=== PATIENT | male | born 1985 | race Caucasian/White ===

== ENCOUNTER 2017-06-12 11:28 | Emergency (ER) | payer BC, OTHER ==
[2017-06-12 11:41] VITALS: TEMP 98.4
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
--- NOTE | 2017-06-12 13:14 | CT ---
PROCEDURE: CT MAXILLOFACIAL BONES WITHOUT CONTRAST HISTORY: pain p trauma COMPARISON: None TECHNIQUE: Contiguous axial CT images of the maxillofacial bones were obtained. Coronal and sagittal reformats were generated. Radiation dose: Total exam DLP = 826.54 mGy-cm. This CT exam was performed using one or more of the following dose reduction techniques: Automated exposure control, adjustment of the mA and/or kV according to patient size, and/or use of iterative reconstruction technique. FINDINGS: NASAL BONES: Unremarkable. ORBITS: Mild periorbital soft tissue swelling. PARANASAL SINUSES/ MASTOIDS: Mild mucosal thickening seen in both maxillary sinuses larger on the right. Mild ethmoidal mucosal thickening. MAXILLA: Unremarkable. MANDIBLE/ TEMPOROMANDIBULAR JOINTS: Unremarkable. SKULL BASE: Unremarkable. TEMPORAL BONES: Middle ears and mastoid grossly unremarkable. OTHER FINDINGS: None. IMPRESSION: No evidence of acute fracture. Mild frontal scalp and periorbital soft tissue swelling. Mild mucosal thickening in the maxillary sinuses larger on the right.
--- NOTE | 2017-06-12 14:30 | RAD ---
PROCEDURE: Right Wrist Radiographs. HISTORY: pain p fall COMPARISON: None. FINDINGS: BONES: Normal. No fracture. JOINTS: Normal. No dislocation. SOFT TISSUES: Normal. OTHER FINDINGS: None. IMPRESSION: No evidence of acute fracture or dislocation.
--- NOTE | 2017-06-12 14:31 | RAD ---
PROCEDURE: Radiographs of the Right Shoulder HISTORY: pain p fall COMPARISON: No prior. FINDINGS: BONES: Normal. No fracture. JOINTS: Normal. Glenohumeral and acromioclavicular joints preserved. No osteoarthritis. SOFT TISSUES: Normal. OTHER FINDINGS: None. IMPRESSION: No evidence of acute fracture or dislocation.
[2017-06-12] MEDS ORDERED: Bacitracin 500 Units/gm Oint Foilpak UD ONE (15:01)
[2017-06-12] MEDS ORDERED: Lidocaine 1% Inj (20ml) ONE (15:01)
[2017-06-12] MEDS ORDERED: Lidocaine 1% Inj (20ml) INFIL ONE (15:02)
[2017-06-12] MEDS ORDERED: Bacitracin 500 Units/gm Oint Foilpak UD TOP ONE (15:02)
[2017-06-12 15:07] VITALS: BP 124/75; PULSE 74; RESP 16
[2017-06-12 15:11] VITALS: O2SAT 99
== END 2017-06-12 15:32 | disposition home or self-care (01) ==
LOC: C.ER 11:28
DX: S01.111A Laceration without foreign body of right eyelid and periocular area, initial encounter (principal); S43.401A Unspecified sprain of right shoulder joint, initial encounter; S63.501A Unspecified sprain of right wrist, initial encounter; T14.8XXA Other injury of unspecified body region, initial encounter; V18.0XXA Pedal cycle driver injured in noncollision transport accident in nontraffic accident, initial encounter; Y93.55 Activity, bike riding

== ENCOUNTER 2017-06-17 11:57 | Emergency (ER) | payer BC ==
[2017-06-17 12:03] VITALS: BP 119/67; TEMP 97.4
--- NOTE | 2017-06-17 12:24 | C.PDOC ---
History Of Present Illness 06/12/17 32 y/o male presents to ED for suture removal placed on 06/12/17. Patient reports wound healing fine and denies any new symptoms, injuries or complaints at this time. Time Seen by Provider: 06/17/17 12:13 Chief Complaint (Nursing): Suture/Staple Removal History Per: Patient History/Exam Limitations: no limitations Onset/Duration Of Symptoms: Days Ago Current Symptoms Are (Timing): Better Past Medical History Reviewed: Historical Data, Nursing Documentation, Vital Signs Vital Signs: Last Vital Signs Temp 97.4 F L 06/17/17 12:01 Pulse 72 06/17/17 12:28 Resp 17 06/17/17 12:28 BP 119/67 06/17/17 12:01 Pulse Ox 98 06/17/17 12:28 - Medical History PMH: No Chronic Diseases Surgical History: No Surg Hx Family History: States: No Known Family Hx - Social History Hx Tobacco Use: No Hx Alcohol Use: Yes Hx Substance Use: No - Immunization History Hx Tetanus Toxoid Vaccination: No Hx Influenza Vaccination: No Hx Pneumococcal Vaccination: No Review Of Systems Constitutional: Negative for: Fever, Chills Eyes: Negative for: Vision Change Skin: Negative for: Rash Neurological: Negative for: Weakness, Numbness, Headache, Dizziness Physical Exam - Physical Exam Appears: Non-toxic, No Acute Distress Skin: Warm, Dry, No Rash Head: Normacephalic, No Tenderness, No Swelling, Laceration (3 stitches in pace on laceration to right lateral eyebrow. No erythema), Other (Right eyebrow lac questionable imcomplete healiung. No dehiscense ) Eye(s): bilateral: Normal Inspection, EOMI Oral Mucosa: Moist Neck: Normal ROM, Supple Chest: Symmetrical Neurological/Psych: Oriented x3, Normal Speech, Normal Cognition, Normal Motor, Normal Sensation ED Course And Treatment O2 Sat by Pulse Oximetry: 99 (RA) Pulse Ox Interpretation: Normal Progress - Data Reviewed Data Reviewed: Old records Medical Decision Making Medical Decision Making: Patient advised to come back in 2 days for suture removal Disposition Counseled Patient/Family Regarding: Diagnosis, Need For Followup - Disposition Referrals: YOUR,PMD [Other] Disposition: HOME/ ROUTINE Disposition Time: 12:20 Condition: IMPROVED Additional Instructions: RETURN 2 DAYS FOR SUTURE REMOVAL Instructions: Care For Your Stitches (ED) Forms: [facility] (Slovenian) - Clinical Impression Clinical Impression: Visit for wound care - Scribe Statement The provider has reviewed the documentation as recorded by the Monicaibrosemary Plascencia All medical record entries made by the Scribe were at my direction and personally dictated by me. I have reviewed the chart and agree that the record accurately reflects my personal performance of the history, physical exam, medical decision making, and the department course for this patient. I have also personally directed, reviewed, and agree with the discharge instructions and disposition.
[2017-06-17 12:29] VITALS: PULSE 72; RESP 17
[2017-06-17 12:33] VITALS: O2SAT 99
== END 2017-06-17 12:29 | disposition home or self-care (01) ==
LOC: C.ER 11:57
DX: Z48.00 Encounter for change or removal of nonsurgical wound dressing (principal)

== ENCOUNTER 2017-06-19 08:38 | Emergency (ER) | payer BC ==
[2017-06-19 08:45] VITALS: BP 121/77; PULSE 74; RESP 18; TEMP 97.3; O2SAT 99
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
== END 2017-06-19 09:10 | disposition home or self-care (01) ==
LOC: C.ER 08:38
DX: Z48.02 Encounter for removal of sutures (principal)